=== PATIENT | female | born 1970 | race Caucasian/White ===

== ENCOUNTER 2020-06-28 19:42 | Emergency (ER) | payer OTHER ==
[2020-06-28] MEDS ORDERED: LIDO 2%/EPI 1:200000 PRESRVFRE (20 ML SDVIAL) ONE (19:49)
[2020-06-28 20:30] VITALS: BP 116/76; PULSE 78; TEMP 98.8; BMI 21.2
== END 2020-06-28 21:05 | disposition home or self-care (01) ==
LOC: FER 19:42
DX: R68.84 Jaw pain (principal); S01.511A Laceration without foreign body of lip, initial encounter
CPT/HCPCS: 99283-25; 99284-25